=== PATIENT | male | born 1990 | race African-American/Black ===

== ENCOUNTER 2018-02-25 06:48 | Emergency (ER) | payer SELFPAY ==
[~2018-02-25] VITALS: Ht 177.8 cm; Wt 95.3 kg
[2018-02-25 06:55] VITALS: BP_SYST 125
--- NOTE | 2018-02-25 06:55 | NUR ---
Patient to ER bed 4 to gown for evaluation. Side rails up.
--- NOTE | 2018-02-25 07:00 | NUR ---
Patient ambulatory to ED a/o x 4 with c/o dry cough x 4 days. No audible wheezing. Denies taking medication at home. Reports pain worsens with cough. Afebrile. -N/V/D
--- NOTE | 2018-02-25 07:10 | NUR ---
ED MD Felix at bedside for medical evaluation.
--- NOTE | 2018-02-25 07:19 | NUR ---
Patient given written and verbal discharge instructions by Stacey GILLESPIE and verbalizes understanding. ER discussed with patient the results and treatment provided. Patient in stable condition. ID arm band removed. Rx of Promethazine given. Patient educated on pain management and to follow up with PMD. Pain Scale 3/10. Opportunity for questions provided and answered. Medication side effect fact sheet provided. Patient left without paperwork. 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
== END 2018-02-25 07:19 | disposition home or self-care (01) ==
LOC: SED 06:48
DX: J40 Bronchitis, not specified as acute or chronic (principal); F17.210 Nicotine dependence, cigarettes, uncomplicated; Z76.5 Malingerer [conscious simulation]; Z71.6 Tobacco abuse counseling
CPT/HCPCS: 99283